=== PATIENT | female | born 2000 | race Hispanic/Latino ===

== ENCOUNTER 2021-06-17 19:29 | Emergency (ER) | payer OTHER ==
[~2021-06-17] VITALS: Ht 167.6 cm; Wt 63.6 kg
[2021-06-17] MEDS ORDERED: MULTTAB20 PO (19:38)
[2021-06-17] MEDS ORDERED: ACETAMINOPHEN 500 MG TAB PO ONE (20:35)
[2021-06-17] MEDS ORDERED: LIDVISCBTL TOP (20:38)
[2021-06-17] MEDS ORDERED: ACET-897 PO (20:38)
[2021-06-17 21:08] VITALS: BP 110/76
== END 2021-06-17 21:10 | disposition home or self-care (01) ==
LOC: M ED 19:29
DX: K08.89 Other specified disorders of teeth and supporting structures (principal); K02.9 Dental caries, unspecified